=== PATIENT | female | born 1975 | race Caucasian/White ===

== ENCOUNTER → 2017-04-05 | Outpatient (CLI) | payer OTHER ==
[~2017-04-05] MED LIST: BUSP10TA PO; DOXY100T PO; DULO20CA45 PO; LORA-446 PO; METO-93 PO; MONT10TA6 PO; SERT100T5 PO; TRAZ100T15 PO; ZOLP6.252 PO
[2017-04-05 16:48] LABS: BLOOD UREA NITROGEN 8 mg/dL (7-18)
[2017-04-05 17:15] LABS: ASPARTATE AMINO TRANSFERASE 17 U/L (15-37); TOTAL IRON BINDING CAPACITY 421 mcg/dL (250-450); TRANSFERRIN 293 mg/dL (200-360)
== END | disposition home or self-care (01) ==
LOC: STAR 15:14
PROVIDERS: ATTEND Surgery
DX: Z01.818 Encounter for other preprocedural examination (principal)
CPT/HCPCS: 36415; 80053; 80061; 82306; 82607; 82728; 82746; 83540; 83550; 83970; 84134; 84425; 84466; 85025; 93005